=== PATIENT | female | born 1985 | race Caucasian/White ===

== ENCOUNTER 2022-03-20 08:47 | Inpatient (IN) | payer OTHER ==
[~2022-03-20] VITALS: Ht 149.9 cm; Wt 66.8 kg
[2022-03-21] VITALS (15 sets, daily range): BP systolic 87–116; BP diastolic 49–86; PULSE 69–102; TEMP 97.7–98.3
--- NOTE | 2022-03-21 05:20 | NUR ---
0520 G3L2 ADM FOR REPEAT C/SECT. EFM ON. PERMITS SIGNED. IV STARTED AND LAB OBTAINED.
[2022-03-21] MEDS ORDERED: PRENATAL TABLET (06:30)
[2022-03-21] MEDS ORDERED: COLACE 100100 MG/CAP (06:31)
[2022-03-21] MEDS ORDERED: NATURAL IRON65 MG (06:31)
[2022-03-21 06:51] LABS: BASO # 0.1 K/mm3 (0.0-0.2); BASO % 0.8 % (0.0-2.0); EOS # 0.1 K/mm3 (0.0-0.7); EOS % 0.6 % (0.0-4.0); GRAN # 6.2 K/mm3 (1.4-6.5); GRAN % 72.4 % (42.2-75.2); HEMOGLOBIN 10.3 g/dl (12.5-16.0); LYMPH # 1.7 K/mm3 (1.2-3.4); LYMPH % 19.4 % (20.0-51.0); MEAN CELL VOLUME 81 fl (80.0-100.0); MEAN CORPUSCULAR HEMOGLOBIN 26 pg (27-31); MEAN CORPUSCULAR HGB CONC 32 g/dl (33.0-37.0); MEAN PLATELET VOLUME 13.7 fl (7.4-10.4); MONO # 0.5 K/mm3 (0.1-0.6); PLATELET COUNT 154 K/mm3 (130-400); REDCELL DISTRIBUTION WIDTH-CV 15.6 % (11.5-14.5)
[2022-03-21 06:52] LABS: HEMATOCRIT 32.5 % (37.0-47.0)
--- NOTE | 2022-03-21 12:51 | NUR ---
0800- WHILE IN THE OR, PÉREZ FLUSHED WITH BACKFLOW TO THE BLADDER PER MD REQUEST. PÉREZ FLUSHED WITH 50CC OF STERILE BABY FORMULA AND 50CC OF STERILE NS. IN MD REPORT BLADDER INTACT. PÉREZ REATTACHED TO BLADDER BAG. DRAINING MILK COLORED FLUID BY GRAVITY.
--- NOTE | 2022-03-22 05:59 | NUR ---
DR. MOORE NOTIFIED REGARDING PT SVE WITH A BULGING WATER BAG. SAID TO CALL WHEN READY FOR DELIVERY
--- NOTE | 2022-03-22 06:52 | NUR ---
REPORT RECEIVED FROM OFF GOING RN. CARE TAKEN OVER BY THIS RN.
[2022-03-22 08:00] VITALS: BP 97/61; PULSE 94; TEMP 97.9
--- NOTE | 2022-03-22 09:35 | NUR ---
Initial visit; Family thanked [employer] for offering congratulations and God's blessings for the of their daughter. [employer] thanked family for choosing [facility]
--- NOTE | 2022-03-22 09:45 | NUR ---
UP TO BATHROOM WITH STANDBY ASSIST X 2. PÉREZ DISCONTINUED. PERICARE, MESH PANTIES, CLEAN PERIPAD APPLIED. PT VERBALIZED PAIN WITH AMBULATION. ABD BINDER APPLIED.
[2022-03-22 15:38] VITALS: BP 93/64; PULSE 92; TEMP 98.2
[2022-03-22 20:00] VITALS: BP 106/62; PULSE 68; TEMP 98.8
--- NOTE | 2022-03-23 01:02 | NUR ---
[id number] THIS RN RECEIVES REPORT FROM BRANDY MCARTHUR AND TAKES OVER CARE.
[2022-03-23 04:34] VITALS: BP 94/50; PULSE 78; TEMP 97.9
[2022-03-23 07:15] VITALS: BP 88/60; PULSE 81; TEMP 98.3
[2022-03-23] MEDS ORDERED: IBU800 M1 PO (08:05)
[2022-03-23] MEDS ORDERED: PERCOCET 325 MG1 TA2 PO (08:05)
--- NOTE | 2022-03-23 11:07 | NUR ---
1100-PT DISCHARGED HOME IN STABLE CONDITION WITH NO COMPLAINTS. PT AMBULATORY. DISCHARGE INSTRUCTIONS GIVEN. PT VERBALIZED UNDERSTANDING.
== END 2022-03-23 11:00 | disposition home or self-care (01) | DRG 788 ==
LOC: OB 03-21 05:09
PROVIDERS: ADMIT Student in an Organized Health Care Education/Training Program
PROC: 10D00Z1 Extraction of Products of Conception, Low, Open Approach (ICD-10-PCS; principal; 2022-03-21)
PROC: 0DNU0ZZ Release Omentum, Open Approach (ICD-10-PCS; 2022-03-21)
PROC: 0UN90ZZ Release Uterus, Open Approach (ICD-10-PCS; 2022-03-21)
DX: O34.211 Maternal care for low transverse scar from previous cesarean delivery (principal); O99.344 Other mental disorders complicating childbirth; F41.9 Anxiety disorder, unspecified; F32.A Depression, unspecified; O99.02 Anemia complicating childbirth; D64.9 Anemia, unspecified; L40.9 Psoriasis, unspecified; Z67.91 Unspecified blood type, Rh negative; O26.893 Other specified pregnancy related conditions, third trimester; O99.72 Diseases of the skin and subcutaneous tissue complicating childbirth; Z3A.39 39 weeks gestation of pregnancy; Z37.0 Single live birth; Z23 Encounter for immunization; O99.892 Other specified diseases and conditions complicating childbirth; N73.6 Female pelvic peritoneal adhesions (postinfective); Z41.8 Encounter for other procedures for purposes other than remedying health state
CPT/HCPCS: J0690; J1885; J2175; J2370; J2405; J2590; J7120